=== PATIENT | female | born 1960 | race Caucasian/White ===

== ENCOUNTER 2020-05-15 14:10 | Emergency (ER) | payer MEDICAID ==
[~2020-05-15] VITALS: Ht 167.6 cm; Wt 99.8 kg
[2020-05-15 14:14] VITALS: BP 151/84
[2020-05-15] MEDS ORDERED: FLUORESCEIN SODIUM OPHTH 1 EA STRIP ONE (14:27)
[2020-05-15] MEDS: FLUORESCEIN SODIUM OPHTH 1 EA STRIP OP ONE (14:43)
[2020-05-15] MEDS: TETRAcaine 5 ML BOTTLE EACHEYE ONE (14:43)
--- NOTE | 2020-05-15 14:58 | NUR ---
Patient eloped from facility. ER MD notified.
== END 2020-05-15 15:00 | disposition left against medical advice (07) ==
LOC: ER 14:22
DX: S01.111A Laceration without foreign body of right eyelid and periocular area, initial encounter (principal); W22.8XXA Striking against or struck by other objects, initial encounter; Y93.89 Activity, other specified; Y92.89 Other specified places as the place of occurrence of the external cause; Y99.8 Other external cause status